=== PATIENT | female | born 1985 | race Hispanic/Latino ===

== ENCOUNTER 2022-09-06 19:21 | Emergency (ER) | payer OTHER ==
[~2022-09-06] VITALS: Ht 160 cm; Wt 72.6 kg
[2022-09-06 21:01] VITALS: BP 138/66
[2022-09-06] MEDS ORDERED: KETO10TA2 PO (21:05)
[2022-09-06] MEDS ORDERED: CYCL-309 PO (21:05)
== END 2022-09-06 21:36 | disposition home or self-care (01) ==
LOC: EDH 19:21
DX: M62.838 Other muscle spasm (principal); M54.2 Cervicalgia; E78.00 Pure hypercholesterolemia, unspecified; I10 Essential (primary) hypertension; J45.909 Unspecified asthma, uncomplicated; V49.49XA Driver injured in collision with other motor vehicles in traffic accident, initial encounter; Y93.89 Activity, other specified; Y92.89 Other specified places as the place of occurrence of the external cause; Y99.8 Other external cause status
CPT/HCPCS: 70450; 72100; 72125; 93971